=== PATIENT | female | born 1940 | race Caucasian/White ===

== ENCOUNTER → 2017-01-14 16:46 | Outpatient (CLI) | payer MEDICARE, BC ==
[2014-05-31 11:50] VITALS: BMI 20.1
[~2017-01-14 16:46] MED LIST: ARMOUR THYROID30 MG PO; EFFEXOR XR37.5 MG PO; ESTRACE1 MG PO; HYDROCHLOROTH12.5 M1 PO; PROMETRIUM100 MG PO; VITAMIN D5000 UNIT PO
== END | disposition home or self-care (01) ==
LOC: D.MAMMO 09:15
DX: Z12.31 Encounter for screening mammogram for malignant neoplasm of breast (principal)

== ENCOUNTER → 2017-10-04 09:13 | Outpatient (CLI) | payer MEDICARE, BC ==
[2014-05-31 11:50] VITALS: BMI 20.1
== END | disposition home or self-care (01) ==
LOC: D.CT 09:00
DX: K86.2 Cyst of pancreas (principal)

== ENCOUNTER → 2018-02-28 23:31 | Outpatient (CLI) | payer MEDICARE, BC ==
[2014-05-31 11:50] VITALS: BMI 20.1
== END | disposition home or self-care (01) ==
LOC: D.MAMMO 10:15
DX: Z12.31 Encounter for screening mammogram for malignant neoplasm of breast (principal)